=== PATIENT | female | born 1980 | race Hispanic/Latino ===

== ENCOUNTER 2020-08-12 18:20 | Emergency (ER) | payer MEDICAID, OTHER ==
[2020-08-12] MEDS ORDERED: ALBUTEROL INHALER 90MCG/INH IH ONE (18:40)
== END 2020-08-12 20:11 | disposition home or self-care (01) ==
LOC: EDH 18:20
DX: U07.1 COVID-19 (principal); Z91.018 Allergy to other foods
CPT/HCPCS: 71045; 87426